=== PATIENT | male | born 1960 | race Caucasian/White ===

== ENCOUNTER 2022-05-08 12:05 | Emergency (ER) | payer BC, SELFPAY ==
[2022-05-08 12:12] VITALS: BP 105/62; BP 92/56; PULSE 60; PULSE 61; RESP 18; TEMP 35.9; O2SAT 95; O2SAT 97; BMI 29.0
--- NOTE | 2022-05-08 12:23 | ED.ALLEREA ---
HPI - Allergic Reaction General Chief complaint: Allergic Reaction Stated complaint: MULTIPLE BEE STINGS W/HIVES Time Seen by Provider: 05/08/22 12:23 Source: patient and EMS Mode of arrival: EMS Limitations: no limitations History of Present Illness HPI narrative: 61-year-old male with a past medical history of atrial fibrillation currently on Eliquis, hypertension presenting to the ED via EMS with complaints of improved eyelid/ lip swelling with hives all over his body that are very itchy and erythematous that started prior to arrival when he was doing some gardening any came across a bee hives and was stung by multiple bees. He reports he took a few Benadryl which improved his eyelid/lip swelling although he vomited shortly after. Then EMS arrived and advised him to come to the emergency department. He reports he has never had an allergic reaction the past. He denies any allergies to intact/food or any other allergies. He reports he took all his medications this morning. At this time he denies any dizziness, headaches, trouble swallowing or breathing, swelling of the lips or eyelids, sore throat, chest pain or shortness of breath, changes in his voice, trismus, drooling, muffled voice, nausea, abdominal pain or any other symptoms complaints or concerns at this time. 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) Exposure: insect bite (bee stings ) Symptoms: rash, itching, facial swelling, lip swelling, nausea and vomiting Severity: severe Treatment prior to arrival: benadryl Previous Allergic Reaction History: none Related Data Previous Rx's Medication Instructions Recorded diphenhydramine HCl 2 % topical 1 appl topical TID PRN itching 05/08/22 gel (Benadryl) #103 mL diphenhydramine HCl 25 mg capsule 50 mg PO TID PRN allergic reaction 05/08/22 (Allergy (diphenhydramine)) #30 caps epinephrine 0.3 mg/0.3 mL 0.3 mg (0.3 mL) IM Q20M PRN 05/08/22 injection, auto-injector (EpiPen) anaphylaxis #2 ea famotidine 20 mg tablet (Pepcid) 20 mg PO BID rash #30 tabs 05/08/22 prednisone 20 mg tablet 40 mg PO DAILY rash 5 days #10 tabs 05/08/22 Allergies Allergy/AdvReac Type Severity Reaction Status Date / Time No Known Allergies Allergy Verified 05/08/22 12:21 Review of Systems Review of Systems: Constitutional : No Fever, No Chills , no body aches, no recent illness Head/Face: + Improved facial swelling, + facial redness ENT/Mouth : No oral/throat swelling, No Hoarseness, No Swallowing Difficulty Eyes: No Eye Pain, No Swelling, No Redness Cardiovascular : No Chest Pain, No SOB, No palpitations Respiratory : No Cough, No Sputum, No Wheezing, No Smoke Exposure, No Dyspnea Gastrointestinal : resolve nausea/vomiting, No Diarrhea, No abdominal Pain Genitourinary : No Dysuria, No Urinary Frequency, No Hematuria Musculoskeletal : No joint pain, No Myalgias, No Joint Swelling Skin : No Skin Lesions, positive rash Neuro : No Weakness, No Numbness, No Headache, No dizziness, No tingling Psych : No Anxiety/Panic, No Depression Heme/Lymph: No Bruising, No Lymphadenopathy Endocrine : No Polyuria, No Polydipsia Denies changes in lotions or detergents. Denies new medications or any changes in medications. Denies drainage from rash. Denies any recent sick contacts or recent travel. Yes all other systems are reviewed and are negative PMFSH Past Medical History Attestation statement: The following information was validated with the patient. Source: old records reviewed and nursing notes reviewed Social History Social History Alcohol intake: current Alcohol intake frequency: a few times a week Alcohol type: beer Patient Tobacco Use Status: Never used Tobacco Use of substances other than those prescribed or required for medical reasons: No Advance Directives: Yes Advance Directives Information Provided: Yes Advance Directives on File: No Physical Exam ED Vital Signs: Vital Signs - 24 hr 05/08/22 12:12 Temperature 96.7 F L Pulse Rate 61 Respiratory Rate 18 Blood Pressure 105/62 Pulse Oximetry 97 Oxygen Delivery Method Room Air BMI result Body Mass Index 29.0 vital signs have been reviewed as normal and appeared to be correct. Blood pressure normal. Heart rate normal. Respiration rate normal. Temperature normal. Oxygen saturation normal. Appearance: Alert. Oriented X3. No acute distress. Head: Normal external exam. Normocephalic. Atraumatic. No angioedema noted at this time. Eyes: PERRLA. EOMI. Conjunctiva and sclera normal. Eyelids normal. ENT: Pharynx normal. Uvula midline. Moist mucous membranes. No lesions/ulcerations or masses noted on the tongue. Normal voice. No trismus noted. No drooling noted. No muffled voice noted. Tolerating secretions well. Neck: Normal inspection. Neck supple. FROM. No adenopathy. Thyroid Normal. No tracheal deviation noted. No crepitus is noted. No meningeal signs. No neck mass noted. No signs of trauma noted. CVS: Normal heart rate and rhythm. Heart sound normal. Pulses normal throughout. No murmurs/rales/gallops. Respiratory: No respiratory distress. Painless inspiration. Breath sounds normal. No wheezes/rales/rhonchi noted. Chest nontender. No crepitus is noted. No accessory muscle usage noted or decreased air movement noted. No signs of trauma. Abdomen: Soft and nontender. Bowel sounds normal in all 4 quadrants. No distention noted. No organomegaly noted. No visible injury noted. Back: Full range of motion noted. Nontender. No signs of trauma. Patient neuro intact bilaterally and distally on all 4 extremities. Patient's reflexes intact bilaterally and distally on all 4 extremities. No rashes/lesion/induration/fluctuance or signs of infection noted. Skin: Skin warm and dry. Normal skin color. Normal skin turgor. patient multiple bee sting [place] all over his body with hives all over his body that are blanchable/ erythematous. No signs of infection. No drainage noted. No additional lesions/lacerations noted. Extremities: Extremities exhibit normal range of motion and nontender. Neuro: Oriented X 3. No motor deficit. No sensory deficit. Reflexes normal. Normal steady gait. No focal neuro deficits noted. CN's II-XII intact bilaterally? Vascular: + radial pulses/+ 2 distal pedal pulses/+2 dorsalis pedis b/l. Normal cap refill. No cyanosis noted to upper extremity nails and lower extremity toes nails. Course Course Course Narrative: IMP/Plan: Allergic rxn. Not anaphylaxis. Not sepsis/ infectious etiology. Patient well appearing in no acute distress, breathing easily without throat symptoms. Speaking full sentences, and handling secretions without difficulty. There is no obvious threat to airway. Lungs are CTA in all [place]. No signs of angioedema, stridor, airway compromise, anaphylaxis or anaphylactic shock. Not c/w SSSS/ TEN/ Eryth multiforme/ Mathis Johnsons. Given HPI and PE - Will watch after giving 125 mg of IV Solu-Medrol, 20 mg of Pepcid, 50 mg of [place] observe. If patient continues to be symptom free - will d/c with return precautions. Patient understands and agrees with plan Reevaluation(s) Reevaluation #1: patient feels much better. Able to tolerate secretions well. Hives have improved. No angioedema noted. Patient tolerating secretions well. No trismus/ drooling/stridor noted. No wheezes/ rales / rhonchi. Chest is clear. No accessory muscle usage noted. Abdomen is soft and nontender. Therefore at this time patient can be discharged with Benadryl/Pepcid/ steroids an EpiPen instructions follow-up with PCP for allergy testing and to return if any new or worsening symptoms. Patient at bedside understand agree this plan. MDM - Allergic Reaction Medical Records Attestation: I reviewed the patient's medical records. Discharge Plan Discharge Clinical Impression: Allergic reaction Patient Disposition: Home, Self-Care Instructions: General Allergic Reaction (ED) Prescriptions: New diphenhydramine HCl [Allergy (diphenhydramine)] 25 mg capsule 50 mg PO TID PRN (Reason: allergic reaction) Qty: 30 0RF Benadryl 2 % gel 1 appl topical TID PRN (Reason: itching) Qty: 103 0RF famotidine [Pepcid] 20 mg tablet 20 mg PO BID Qty: 30 0RF prednisone 20 mg tablet 40 mg PO DAILY 5 Days Qty: 10 0RF epinephrine [EpiPen] 0.3 mg/0.3 mL auto-injector 0.3 mg IM Q20M PRN (Reason: anaphylaxis) Qty: 2 0RF Rx Instructions: do not exceed 3 doses per episode Referrals: Ahmet Pelayo MD [Primary Care Provider] - 1 week Print Language: Arabic
[2022-05-08] MEDS: diphenhydrAMINE HCL 50 MG/ML VIAL 25 MG IVPUSH (12:34)
[2022-05-08] MEDS: methylPREDNISolone Sod Succ 125 MG/2 ML VIAL IVPUSH (12:34)
[2022-05-08] MEDS: Famotidine/PF 20 MG/2 ML VIAL IVPUSH (12:35)
[2022-05-08] MEDS: 0.9 % Sodium Chloride 1,000 ML 999 ML IV (12:35)
--- NOTE | 2022-05-08 12:39 | PC.NURSE ---
pt alert and oriented, skin covered in hives all over, skin red in color, ls clear no respiratory distress noticed at this time, sating at 96-98% n room air. but pt reports being stung multiple times by yellow jackets around 1100 and had lip swelling/ edema around the eyes/nausea and took 25 mg of Benadryl but vomited shortly after normal sinus on the monitor
[2022-05-08 15:02] VITALS: BP 124/81; PULSE 86; RESP 18; O2SAT 97
--- NOTE | 2022-05-08 15:03 | PC.NURSE ---
pt reports feeling better, the hives almost completely gone same with the redness. vs stable
== END 2022-05-08 15:04 | disposition home or self-care (01) ==
PROVIDERS: Emergency Provider Emergency Medicine; PCP Internal Medicine
DX: T63.441A Toxic effect of venom of bees, accidental (unintentional), initial encounter (principal); R22.0 Localized swelling, mass and lump, head; L50.0 Allergic urticaria; Y92.017 Garden or yard in single-family (private) house as the place of occurrence of the external cause
CPT/HCPCS: 96361; 96374; 96375; 99284; J1200; J2930